=== PATIENT | female | born 1995 | race Two or more races ===

== ENCOUNTER 2024-08-21 14:54 | Emergency (ER) | payer OTHER ==
[~2024-08-21] VITALS: Ht 160 cm; Wt 64.0 kg
[2024-08-21] MEDS ORDERED: PROM1SOL4 PO (15:43)
[2024-08-21] MEDS ORDERED: AZITTAB PO (15:43)
[2024-08-21] MEDS ORDERED: MONT10TA23 PO (15:43)
--- NOTE | 2024-08-21 15:44 | ED.PDOC ---
SOB-HPI HPI Comments 21-year-old female complaining of cough congestion x3 weeks. Has been having intermittent sore throat and fever. Fever broke three days ago. Also complaining of shortness a breath. States cough has been productive. Nothing makes it better, nothing makes it worse. Has been taking [id number] guaifenesin with no help. Patient states her son has also been sick for similar same symptoms. Chief Complaint: Flu like Time Seen by MD: 15:20 Reviewed notes: Nurses Notes Information Source: Patient Past Medical History PAST MEDICAL HISTORY: Denies Surgical History: Denies all surgeries TRUCK SALES REPRESENTATIVE History: No Pertinent TRUCK SALES REPRESENTATIVE History Constitutional: reports: fatigue, fever; denies: chills, diaphoresis, malaise, sweats, weakness, others EENTM: denies: blurred vision, double vision, ear bleeding, ear discharge, ear drainage, ear pain, ear ringing, eye pain, eye redness, hearing loss, mouth pain, mouth swelling, nasal discharge, nose bleeding, nose congestion, nose pain, photophobia, tearing, throat pain, throat swelling, voice changes, others Respiratory: reports: cough, SOB at rest; denies: hemoptysis, orthopnea, shortness of breath, SOB with excertion, stridor, wheezing, others Cardiovascular: denies: chest pain, dizzy spells, diaphoresis, Dyspnea on exertion, edema, irregular heart beat, left arm pain, lightheadedness, palpitations, PND, syncope, others Gastrointestinal: reports: diarrhea, nausea, vomiting; denies: abdomen dist ended, abdominal pain, blood streaked bowels, dysphagia, difficulty swallowing, hematemesis, melena, poor appetite, poor fluid intake, rectal bleeding, rectal pain, others Genitourinary: denies: abnormal vagina bleeding, burning, dyspareunia, dysuria, flank pain, frequency, hematuria, incontinence, pain, , vagina discharge, urgency, others Neurological: denies: dizziness, fainting, headache, left sided numbness, left sided weakness, numbness, paresthesia, pre-existing deficit, right sided numbness, right sided weakness, seizure, speech problems, tingling, tremors, weakness, others Musculoskeletal: denies: back pain, gout, joint pain, joint swelling, muscle pain, muscle stiffness, neck pain, others Integumetry: denies: bruises, change in color, change in hair/nails, dryness, laceration, lesions, lumps, rash, wounds, others Allergic/Immunocompromised: denies: Difficulty Healing, Frequent Infections, Hives, Itching, others Physical Exam General Appearance: No Apparent Distress, Normal HEENT: Normal ENT Inspection, Pharynx Normal, TMs Normal Neck: Full Range of Motion, Non-Tender, Normal, Normal Inspection Respiratory: Chest Non-Tender, Lungs Clear, No Accessory Muscle Use, No Respiratory Distress, Normal Breath Sounds Cardiovascular: No Edema, No JVD, No Murmur, No Gallop, Normal Peripheral Pulses, Regular Rate/Rhythm Breast Exam: Deferred Gastrointestinal: No Organomegaly, Non Tender, No Pulsatile Mass, Normal Bowel Sounds, Soft Genitalia: Deferred Pelvic: Deferred Rectal: Deferred Extremities: No calf tenderness, Normal capillary refill, Normal inspection, Normal range of motion, Non-tender, No pedal edema Musculoskeletal : Apperance: Normal Neurologic: Alert, 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 Was a procedure done?: No Differential Dx Differential Diagnosis: Pneumonia, Pulmonary Embolism, Respiratory Distress, Sinusitis, Allergic Rhinitis, Otitis Media X-Ray, Labs, Meds, VS Comment Imaging: X-rays and CT scans were reviewed and interpreted by this provider, imaging shows no fractures and no pathological disease. Pending radiology review. Laboratory: Labs reviewed and interpreted by this provider. No significant abnormalities noted. Patient has prior medical visits reviewed. Med reconciliation performed Vital signs reviewed Time of 1ST Reevaluation: 15:43 Reevaluation 1ST: Improved Patient Education/Counseling: Diagnosis, Treatment, Need For Follow Up (Patient advised to follow-up in the emergency room in the next 24 to 48 hours if s ymptoms do not improve. Advised follow-up with PCP in the next 3 to 5 days. Patient verbalized understanding. ) Family Education/Counseling: Diagnosis Departure 1 Departure Time of Disposition: 15:41 Impression: Primary Impression: Bronchitis Disposition: 01 HOME / SELF CARE / HOMELESS Condition: Fair e-Prescriptions Azithromycin (Zithromax Z-Luis Miguel) 250 Mg Tab 250 MG PO DAILY for 5 Days, #6 TAB Prov: SUMAN STEIN 08/21/24 Promethazine-Dm (Promethazine Dm 6.25-15 mg/5Ml) 1 Roberta Roberta 5 ML PO TID PRN, #240 ML Prov: SUMAN TSEIN 08/21/24 Montelukast Sodium (Singulair) 10 Mg Tab 10 MG PO DAILY, #30 TAB Prov: SUMAN STEIN 08/21/24 Discharged With: Self Critical Care Note Critical Care Time?: No Stability Stability form required: No Heart Score Heart Score: Heart Score Response (Comments) Value History N/A 0 EKG N/A 0 Age N/A 0 Risk Factors N/A 0 Troponin N/A 0 Total 0 SUMAN STEIN Aug 21, 2024 15:44
[2024-08-21 19:18] VITALS: BP 111/72; PULSE 70; RESP 18; TEMP 98.7; O2SAT 97
== END 2024-08-21 19:20 | disposition home or self-care (01) ==
LOC: ER 14:54
DX: J40 Bronchitis, not specified as acute or chronic (principal)

== ENCOUNTER 2024-12-22 22:14 | Emergency (ER) | payer MEDICAID, OTHER ==
[~2024-12-22] VITALS: Ht 160 cm; Wt 61.5 kg
[~2024-12-22 22:14] MED LIST: AZITTAB PO; MONT10TA23 PO; PROM1SOL4 PO
--- NOTE | 2024-12-22 22:59 | ED.PDOC ---
GI ASSESSMENT HPI Comments 29-year-old female who came to ER for abdominal pain. Patient is a , about 4:00 p.m. today, she started experiencing lower abdominal cramping pain, associated back pains and nausea. Denies any vaginal bleeding or vaginal discharge. Patient is approximately 6 weeks Chief Complaint: Abdominal Pain Time Seen by MD: 22:56 Reviewed Notes: Nurses Notes Allergies: Coded Allergies: NO KNOWN ALLERGIES (Unverified , 08/21/24) Home Meds Active Scripts Azithromycin (Zithromax Z-Luis Miguel) 250 Mg Tab, 250 MG PO DAILY for 5 Days, #6 TAB Prov:SUMAN STEINP 08/21/24 Promethazine-Dm (Promethazine Dm 6.25-15 mg/5Ml) 1 Roberta Roberta, 5 ML PO TID PRN, #240 ML Prov:SUMAN STEIN CONVEX GRINDER 08/21/24 Montelukast Sodium (Singulair) 10 Mg Tab, 10 MG PO DAILY, #30 TAB Prov:SUMAN STEINP 08/21/24 Information Source: Patient Mode of Arrival: EMS Timing: Hours Duration: Intermittent Prehospital treatment: None Quality: Cramping Vomitus: None Stool: Normal Severity: Moderate Recent: None Recent Hx of: Current Pain Location: Epigastric Associated sign and symptoms: Nausea, Abdominal Pain Review of Systems REVIEW OF SYSTEMS: No fever, no chills, or fatigue HEENT: No sore throat, no earache, no congestion, no neck pain. Cardiac: No chest pain. No palpitations. Lungs: No shortness of breath, no cough. GI: (+) nausea, no vomiting, no diarrhea, no constipation, (+) abdominal pain : No dysuria,(+)frequency, or urgency. No hematuria. Musculoskeletal: No joint pain , no joint swelling, no extremity edema. Skin: No rash, no itching. Neuro: No headache, no dizziness, no weakness Vital Signs Vital Signs Date Time Temp Pulse Resp B/P (MAP) Pulse Ox O2 Delivery O2 Flow Rate FiO2 12/23/24 00:05 98.6 72 14 96/58 (71) 97 98.6 12/23/24 00:00 Room Air* 0 21 Physical Exam General: Awake, alert and oriented. No acute distress. Skin: Skin in warm, dry and intact. Appropriate color for ethnicity. Nailbeds pink with no cyanosis. HEENT: The head is normocephalic and atraumatic. Conjunctivae are clear without exudates or hemorrhage. Sclera is non-icteric. EOM are intact. No signs of nystagmus. Eyelids are normal in appearance without swelling or lesions. Oral mucosa is pink and moist Neck: The neck is supple with normal range of motion. No JVD. Cardiac: Heart rate and rhythm are normal. No murmurs, gallops, or rubs are auscultated. Respiratory: No signs of respiratory distress. Lung sounds are clear in all lobes bilaterally without rales, rhonchi, or wheezes. Abdominal: Abdomen is soft, positive suprapubic tenderness without distention, guarding or rigidity. Bowel sounds are present and normoactive in all four quadrants. : Normal external vagina. Scant white curd like discharge. Extremities: Upper and lower extremities are atraumatic in appearance without deformity or edema. Neurological: The patient is awake, alert and oriented to person, place, and time with normal speech. Speech is clear. There is no facial asymmetry. Psychiatric: Appropriate mood and affect. Good judgement and insight. No visual or auditory hallucinations. Past Medical History PAST MEDICAL HISTORY: Denies Surgical History: Denies all surgeries ARMORED CAR MESSENGER History: No Pertinent ARMORED CAR MESSENGER History 3 Para 1 LMP October 17, 2024 Family History Family History: Reviewed,noncontributory to illness Social History Smoker: Non-Smoker Alcohol: Denies ETOH Use Drugs: Denies Drug Use Lives In: Home Was a procedure done? Was a procedure done?: No GI differential Dx Differential Diagnosis: Diverticular disease, Ectopic , Gastritis/PUD, Gastroenteritis, Hernia, UTI, Urolithiasis, X-Ray, Labs, Meds, VS Vital Signs Date Time Temp Pulse Resp B/P (MAP) Pulse Ox O2 Delivery O2 Flow Rate FiO2 12/23/24 00:05 98.6 72 14 96/58 (71) 97 98.6 12/23/24 00:00 Room Air* 0 21 12/22/24 22:30 98.6 77 18 103/73 (83) 98 98.6 Lab Test 12/22/24 22:51 12/22/24 22:40 Range/Units Urine Color Colorless Yellow Urine Clarity Turbid H Clear Urine pH 7.5 5.0-9.0 Urine Specific [place] 1.021 1.001-1.035 Urine Protein Negative Negative Urine Ketones Negative Negative Urine Blood Negative Negative /uL Urine Nitrite Negative Negative Urine Bilirubin Negative Negative Urine Urobilinogen Normal Negative mg/dL Urine Leukocyte Esterase Negative Negative /uL Urine RBC 1 0 - 4 /hpf Urine Microscopic WBC < 1 0-5 /HPF Urine Squamous Epithelial Cells Few <5 /hpf Urine Amorphous Crystals Few None Seen /hpf Urine Bacteria Few H None Seen /hpf Urine Yeast (Budding) Many None Seen /hpf Urine Glucose Normal Normal mg/dL Chlamydia trachomatis ([facility]) Pending Neisseria gonorrhoeae ([facility]) Pending White Blood Count 10.1 4.4-10.8 10^3/uL Red Blood Count 4.71 4.0-5.20 10^6/uL Hemoglobin 14.3 12.2-16.2 g/dL Hematocrit 41.9 36.0-46.0 % Mean Corpuscular Volume 89.0 80.0-100.0 fL Mean Corpuscular Hemoglobin 30.3 28.0-32.0 pg Mean Corpuscular Hemoglobin Concent 34.0 32.0-36.0 g/dL Red Cell Distribution Width 13.2 11.8-14.3 % Platelet Count 221 140-450 10^3/uL Mean Platelet Volume 8.1 6.9-10.8 fL Neutrophils (%) (Auto) 65.3 37.0-80.0 % Lymphocytes (%) (Auto) 27.2 10.0-50.0 % Monocytes (%) (Auto) 5.5 0.0-12.0 % Eosinophils (%) (Auto) 1.6 0.0-7.0 % Basophils (%) (Auto) 0.4 0.0-2.0 % Neutrophils # (Auto) 6.6 1.6-8.6 10 ^3/uL Lymphocytes # (Auto) 2.7 0.4-5.4 10 ^3/uL Monocytes # (Auto) 0.6 0-1.3 10 ^3/uL Eosinophils # (Auto) 0.2 0-0.8 10 ^3/uL Basophils # (Auto) 0 0-0.2 10 ^3/uL Nucleated Red Blood Cells 0.0 % Sodium Level 140 136-145 mmol/L Potassium Level 3.9 3.5-5.1 mmol/L Chloride Level 104 98-107 mmol/L Carbon Dioxide Level 28 20-31 mmol/L Anion Gap 8 5-15 Blood Urea Nitrogen 8 L 9-23 mg/dL Creatinine 0.69 0.550-1.02 mg/dL Glomerular Filtration Rate Calc 121 >90 mL/min BUN/Creatinine Ratio 11.6 10.0-20.0 Serum Glucose 93 74-106 mg/dL Calcium Level 9.2 8.7-10.4 mg/dL Beta HCG, Quantitative 83342.6 H 1.5-4.2 mIU/mL Current Medications Medications (Trade) Dose Ordered Sig/Jose M Route Start Time Stop Time Status Last Admin Acetaminophen (Tylenol Tablet) 650 mg ONCE ONCE PO 12/22/24 22:45 12/22/24 22:46 DC 12/23/24 00:00 PATIENT: VLAD MCGHEE EACCT: [id number]: [id number] : 1995 LOC: ER ROOM / BED: / AGE / SEX: 29 / F ADM STATUS: REG ER SERVICE 35 ORDERING PHYSICIAN: TORRIE ENRIQUE MD PROCEDURE(s): OB4US - OB ULTRASOUND COMP LESS 14WKS REASON: Pelvic cramping, vaginal discharge, 6 weeks ORDER NUMBER(s): [id number], ACCESSION NUMBER(s): [id number] OB ULTRASOUND <14 WEEKS: HISTORY: Pelvic cramping, vaginal discharge, 6 weeks TECHNIQUE: Multiple real-time grayscale sonographic images of the pelvis with duplex Doppler color flow, spectral and M-mode analysis. COMPARISON: None FINDINGS: Uterus measures approximately 8.7 x 5 x 7.8 cm. There is an intrauterine gestational sac containing a yolk sac and pole. The mean sac diameter measures 21.5 mm corresponding to an estimated gestational age of 6 weeks 5 days. The crown rump length measures 8.7 mm corresponding to an estimated gestational age of 6 weeks 6 days. The average ultrasound estimated gestational age is 6 weeks 6 days. INGA: 08/11/2025. cardiac activity was identified with heart rate of 177 bpm. Right ovary measures approximately 2.6 x 1.6 x 2.2 cm and appears unremarkable with normal Doppler color flow. Left ovary measures approximately 2.8 x 1.9 x 2.2 cm and appears unremarkable with normal Doppler color flow. No evidence of pelvic mass or fluid collection. IMPRESSION: Single live intrauterine with estimated gestational age of 6 weeks 6 days. ATED BY: TUCKER ORNELAS MD DICTATED DATE/TIME: 12/23/2417 SIGNED BY: TUCKER ORNELAS MD SIGNED DATE/TIME: 12/23/2417 CC: Time of 1ST Reevaluation: 22:52 Reevaluation 1ST: Unchanged Patient Education/Counseling: Need For Follow Up Family Education/Counseling: No Family Present Departure 1 Departure Time of Disposition: 00:57 Impression: Primary Impression: Pelvic pain during Disposition: 01 HOME / SELF CARE / HOMELESS Condition: Stable Additional Instructions: ED DISCHARGE INSTRUCTIONS Instructions: Please read all instructions provided in this packet carefully. Although you have been discharged from the Emergency Department, this does not mean that you have a "clean bill of health". No definitive diagnosis for your symptoms has been made today. It is possible that you are in the process of developing a serious illness. This is why you must return to the ED without fail if any new or worsening symptoms (especially if your symptoms include chest pain, trouble breathing, abdominal pain, fever, headache, confusion, trouble seeing, or trouble walking) It is also very important that you see a primary care doctor within the next 1-3 days to follow up. If you are unable to get an appointment, return to the ED for re-evaluation. A copy of your ultrasound report is included below: PATIENT: VLAD MCGHEE ACCT: [id number] UNIT: [id number] : 1995 LOC: ER ROOM / BED: / AGE / SEX: 29 / F ADM STATUS: REG ER SERVICE 35 ORDERING PHYSICIAN: TORRIE ENRIQUE MD PROCEDURE(s): OB4US - OB ULTRASOUND COMP LESS 14WKS REASON: Pelvic cramping, vaginal discharge, 6 weeks ORDER NUMBER(s): [id number], ACCESSION NUMBER(s): [id number] OB ULTRASOUND <14 WEEKS: HISTORY: Pelvic cramping, vaginal discharge, 6 weeks TECHNIQUE: Multiple real-time grayscale sonographic images of the pelvis with duplex Doppler color flow, spectral and M-mode analysis. COMPARISON: None FINDINGS: Uterus measures approximately 8.7 x 5 x 7.8 cm. There is an intrauterine gestational sac containing a yolk sac and pole. The mean sac diameter measures 21.5 mm corresponding to an estimated gestational age of 6 weeks 5 days. The crown rump length measures 8.7 mm corresponding to an estimated gestational age of 6 weeks 6 days. The average ultrasound estimated gestational age is 6 weeks 6 days. INGA: 08/11/2025. cardiac activity was identified with heart rate of 177 bpm. Right ovary measures approximately 2.6 x 1.6 x 2.2 cm and appears unremarkable with normal Doppler color flow. Left ovary measures approximately 2.8 x 1.9 x 2.2 cm and appears unremarkable with normal Doppler color flow. No evidence of pelvic mass or fluid collection. IMPRESSION: Single live intrauterine with estimated gestational age of 6 weeks 6 days. ATED BY: TUCKER ORNELAS MD DICTATED DATE/TIME: 12/23/2417 SIGNED BY: TUCKER ORNELAS MD SIGNED DATE/TIME: 12/23/2417 CC: Comments Patient well-appearing, nontoxic. Ultrasound shows IUP. Labs are urgently actionable. Vaginal bacterial culture, wet mount and GC chlamydia pending. Advised prompt follow-up with PCP/product promoter sales person, return to the ED with any new, worsening or concerning symptoms. I reviewed the following notes from the pt's past medical encounters: N/A The following tests were ordered, and results were reviewed by me: (See diagnostic results section) The following test were independently interpreted by me: N/A Additional information was gathered from interviewing the following independent historians: N/A I reviewed and agreed with the following test results read by other providers: N/A I discussed treatments and results with patient Decision regarding hospitalization or escalation of hospital level of care: Risks and benefits of admission for further treatment of patient's condition was considered however due to patient's stable condition patient will be discharged to follow up closely or return to care for worsening of condition or inability to follow up. Critical Care Note Critical Care Time?: No Stability Stability form required: No Heart Score Heart Score: Heart Score Response (Comments) Value History N/A 0 EKG N/A 0 Age N/A 0 Risk Factors N/A 0 Troponin N/A 0 Total 0 I personally scribed for TORRIE ENRIQUE MD ([email or web address]) on 12/22/24 at 22:58. Electronically submitted by Emmanuel Lopes ([email or web address]). TORRIE ENRIQUE MD December 22, 2024 22:58
[2024-12-22 23:00] LABS: Basophils # (auto) 0 10 ^3/uL (0-0.2); Basophils % (auto) 0.4 % (0.0-2.0); Eosinophils # (auto) 0.2 10 ^3/uL (0-0.8); Eosinophils % (auto) 1.6 % (0.0-7.0); Hematocrit 41.9 % (36.0-46.0); Hemoglobin 14.3 g/dL (12.2-16.2); Lymphocytes # (auto) 2.7 10 ^3/uL (0.4-5.4); Lymphocytes % (auto) 27.2 % (10.0-50.0); Mean Corpuscular Hemoglobin 30.3 pg (28.0-32.0); Monocytes # (auto) 0.6 10 ^3/uL (0-1.3); Monocytes % (auto) 5.5 % (0.0-12.0); Neutrophils # (auto) 6.6 10 ^3/uL (1.6-8.6); Neutrophils % (auto) 65.3 % (37.0-80.0); Platelet Count (auto) 221 10^3/uL (140-450); Red Blood Cells 4.71 10^6/uL (4.0-5.20); Red Cell Distribution Width 13.2 % (11.8-14.3); White Blood Cell 10.1 10^3/uL (4.4-10.8)
[2024-12-22 23:08] LABS: Chloride 104 mmol/L (98-107); Potassium 3.9 mmol/L (3.5-5.1); Sodium 140 mmol/L (136-145)
[2024-12-22 23:09] LABS: Anion Gap 8 (5-15); Carbon Dioxide 28 mmol/L (20-31)
[2024-12-22 23:10] LABS: Calcium 9.2 mg/dL (8.7-10.4)
[2024-12-22 23:14] LABS: BUN/Creatinine Ratio 11.6 (10.0-20.0); Glucose 93 mg/dL (74-106)
[2024-12-22 23:34] LABS: Blood Urea Nitrogen 8 mg/dL (9-23)
[2024-12-23] MEDS: ACETAMINOPHEN 325 MG TAB PO ONE
--- NOTE | 2024-12-23 00:20 | DVH ---
OB ULTRASOUND <14 WEEKS: HISTORY: Pelvic cramping, vaginal discharge, 6 weeks TECHNIQUE: Multiple real-time grayscale sonographic images of the pelvis with duplex Doppler color f low, spectral and M-mode analysis. COMPARISON: None FINDINGS: Uterus measures approximately 8.7 x 5 x 7.8 cm. There is an intrauterine gestational sac containing a yolk sac and pole. The mean sac diameter measures 21.5 mm corresponding to an estimated gestational age of 6 weeks 5 day s. The crown rump length measures 8.7 mm corresponding to an estimated gestational age of 6 weeks 6 d ays. The average ultrasound estimated gestational age is 6 weeks 6 days. INGA: 08/11/2025. cardiac activity was identified with heart rate of 177 bpm. Right ovary measures approximately 2.6 x 1.6 x 2.2 cm and appears unremarkable with normal Doppler co kylee flow. Left ovary measures approximately 2.8 x 1.9 x 2.2 cm and appears unremarkable with normal Doppler col or flow. No evidence of pelvic mass or fluid collection. IMPRESSION: Single live intrauterine with estimated gestational age of 6 weeks 6 days.
[2024-12-23 01:10] LABS: Urine Amorphous Crystal FEW /hpf (None Seen); Urine Bacteria FEW /hpf (None Seen); Urine Blood Negative /uL (Negative); Urine Budding Yeast MANY /hpf (None Seen); Urine Clarity Turbid (Clear); Urine Color Colorless (Yellow); Urine Protein, UAD Negative (Negative); Urine Specific Gravity 1.021 (1.001-1.035); Urine Squamous Epithelial Cell FEW /hpf (<5); Urine Urobilinogen Normal (Negative); Urine WBC < 1 /HPF (0-5); Urine pH 7.5 (5.0-9.0)
[2024-12-23 02:04] VITALS: BP 98/60; PULSE 80; RESP 12; TEMP 98.1; O2SAT 97
[2024-12-23] MEDS ORDERED: ACET500T58 PO (02:06)
[2024-12-23 12:37] LABS: Vaginal Bacteria Few; Vaginal Clue Cells Few; Vaginal Epithelial Cells Few; Vaginal Trichomonas Not Present
[2024-12-25 14:07] LABS: Chlamydia Trachomatis, NAA Negative (Negative); Neisseria gonorrhoeae, NAA Negative (Negative)
== END 2024-12-23 02:11 | disposition home or self-care (01) ==
LOC: ER 22:14
DX: O26.891 Other specified pregnancy related conditions, first trimester (principal); R10.2 Pelvic and perineal pain; O21.9 Vomiting of pregnancy, unspecified; Z3A.01 Less than 8 weeks gestation of pregnancy; Z79.899 Other long term (current) drug therapy
CPT/HCPCS: 36415; 76801; 76817; 80048; 81001; 84702; 85025; 87070; 87081; 87205; 87210